=== PATIENT | male | born 1955 | race Caucasian/White ===

== ENCOUNTER 2017-11-13 05:16 | Day surgery (SDC) | payer OTHER ==
[2017-11-10 08:20] VITALS: BMI 22.0
[2017-11-13] MEDS ORDERED: PROPOFOL 20 ML ONE (07:57)
[2017-11-13] MEDS ORDERED: MIDAZOLAM HCL 2 MG/2 ML SINGLE DOSE VIAL ONE (07:57)
[2017-11-13] MEDS ORDERED: DEXAMETHASONE SOD PHOSPHATE 4 MG/1 ML VIAL ONE (08:31)
[2017-11-13] MEDS ORDERED: ONDANSETRON 4 MG/2 ML VIAL IVPUSH PRN (08:45)
[2017-11-13] MEDS ORDERED: LACTATED RINGERS SOLUTION 1,000 ML IV SCH (08:45)
[2017-11-13] MEDS ORDERED: oxyCODONE HCL 5 MG TABLET PO PRN (08:45)
[2017-11-13 10:38] VITALS: TEMP 97.7
--- NOTE | 2017-11-13 12:21 | OP ---
Operative Note - Note: Operative Date: 11/13/17 Pre-Operative Diagnosis: Uretral stricture Operation: Cystoscopy, laser urethrotomy Surgeon: Blade Garcia Anesthesia: General Drains & Tubes with Location: 20 F Rivera catheter
[2017-11-13 12:46] VITALS: BP 143/74; PULSE 58
--- NOTE | 2017-11-13 20:55 | OP ---
DATE OF OPERATION: 11/13/2017 PREOPERATIVE DIAGNOSIS: Urethral stricture. POSTOPERATIVE DIAGNOSIS: Urethral stricture. PROCEDURE: Cystoscopy and laser urethrotomy. ATTENDING: Blade Nick MD ANESTHESIA: General. DESCRIPTION OF OPERATION: Patient brought in the operating room, placed in supine position on the operating room table. Preoperative antibiotics and general anesthesia were administered. At this point, the patient was placed in the dorsal lithotomy position and prepped and draped in the usual sterile manner. Cystoscopy was performed, and the bulbous urethral stricture was identified. Because the area was near the sphincteric mechanism, it was decided not to use blunt trauma and cause further injury. The holmium laser was utilized, and an incision made at the 12 o'clock position of the stricture. This allowed for relaxation of the tissue, and the bladder was able to be entered. The bladder was noted to have 1+ to 2+ bladder trabeculation with cellules. No evidence of stones or neoplasm was noted. The patient tolerated the procedure very well. There were no complications noted. The patient was left with a Rivera catheter which was a 20-[place] Silastic catheter. The patient tolerated the procedure very well. The disposition of the patient was to the recovery room. Tamara [id number]
== END 2017-11-13 12:45 | disposition home or self-care (01) ==
LOC: JASU-SURG 05:16
PROVIDERS: ATTEND Urology
PROC: 0TND8ZZ Release Urethra, Via Natural or Artificial Opening Endoscopic (ICD-10-PCS; principal; 2017-11-13 08:00)
DX: N35.9 Urethral stricture, unspecified (principal)
CPT/HCPCS: 94760

== ENCOUNTER 2020-09-28 04:19 | Day surgery (SDC) | payer OTHER ==
[2020-09-23 18:46] VITALS: BMI 22.4
[2020-09-28] MEDS ORDERED: MIDAZOLAM HCL 2 MG/2 ML SINGLE DOSE VIAL ONE (13:46)
[2020-09-28] MEDS ORDERED: PROPOFOL 20 ML ONE (13:49)
[2020-09-28 15:48] VITALS: BP 147/79; PULSE 60; TEMP 98
== END 2020-09-28 16:02 | disposition home or self-care (01) ==
LOC: JASU-SURG 04:19
PROVIDERS: ATTEND Urology
PROC: 0TF4XZZ Fragmentation in Left Kidney Pelvis, External Approach (ICD-10-PCS; principal; 2020-09-28 12:00)
DX: N20.0 Calculus of kidney (principal)